=== PATIENT | female | born 2000 | race Caucasian/White ===

== ENCOUNTER 2022-02-01 22:00 | Emergency (ER) | payer OTHER ==
[~2022-02-01] VITALS: Ht 170.2 cm; Wt 86.2 kg
[2022-02-01] MEDS ORDERED: IBUPROFEN 200 MG TAB PO ONE (22:15)
[2022-02-01] MEDS ORDERED: ACETAMINOPHEN 325 MG TAB PO ONE (22:15)
[2022-02-01] MEDS ORDERED: IBUPROFEN 600 MG TAB ONE (22:27)
[2022-02-01] MEDS ORDERED: ACETAMINOPHEN500 MG PO (22:28)
[2022-02-01] MEDS ORDERED: IBUPROFEN200 MG PO (22:28)
[2022-02-02 00:16] VITALS: BP 158/80
== END 2022-02-02 00:16 | disposition home or self-care (01) ==
LOC: FSED 22:08
DX: S43.102A Unspecified dislocation of left acromioclavicular joint, initial encounter (principal); S43.402A Unspecified sprain of left shoulder joint, initial encounter; G89.11 Acute pain due to trauma; W10.9XXA Fall (on) (from) unspecified stairs and steps, initial encounter; Y92.009 Unspecified place in unspecified non-institutional (private) residence as the place of occurrence of the external cause
CPT/HCPCS: 99283

== ENCOUNTER 2022-05-20 15:24 | Emergency (ER) | payer OTHER ==
[~2022-05-20] VITALS: Ht 165.1 cm; Wt 86.2 kg
[~2022-05-20 15:24] MED LIST: ACETAMINOPHEN500 MG PO; IBUPROFEN200 MG PO
== END 2022-05-20 15:50 | disposition left against medical advice (07) ==
LOC: FSED 15:46
DX: R06.00 Dyspnea, unspecified (principal); R07.89 Other chest pain
CPT/HCPCS: 93005